=== PATIENT | female | born 1940 | race Caucasian/White ===

== ENCOUNTER 2025-04-01 14:46 | Outpatient (AMB) | payer MEDICARE, MEDICAID, SELFPAY ==
--- NOTE | 2025-04-01 14:49 | MHC.OFFVIS ---
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 She reports that the pain has been persistent since the age of 37, following a fall on concrete. The pain is described as constant, with a severity ranging from 8 to 10 out of 10, particularly exacerbated by daily activities. The patient also has a history of fibromyalgia, with pain reported in multiple areas including the neck, arms, hands, shoulders, back, legs, knees, and toes. The pain is characterized as stabbing, sharp, tingling, aching, heavy, tiring, radiating, piercing, and cold sensation. Patient has recently completed cervical and lumbar spine MRI as noted below, significant for multilevel degenerative changes with moderate to severe central and neuroforaminal stenosis in cervical and lumbar spine. She is considering neuromodulation with spinal cord stimulation trial but is planning to follow up with Dr. Amos initially. She has not decided to undergo SCS trial through our office or with Dr. Amos but is consenting to proceed with Behavioral evaluation through [facility] in the meantime. She has undergone various interventions including physical therapy, chiropractic manipulation, acupuncture, and the use of a TENS unit, with limited relief. The patient is currently using oxycodone 15 mg twice daily, which provides some relief but does not fully alleviate the pain. The patient has a history of cardiac stents and catheterizations, as well as a left knee replacement and back fusion with screws. She also has a history of lung cancer and osteoporosis, which contraindicates the use of steroid injections. The patient used to smoke 1 to 1.5 packs per day but has stopped, and she drinks one cup of regular coffee daily while denying alcohol use. - Onset: Pain has been present since age 37 following a fall on concrete. - Quality: Described as stabbing, sharp, tingling, aching, heavy, tiring, radiating, piercing, and cold sensation. - Severity: Ranges from 8 to 10 out of 10, with morning pain being 5 to 6 out of 10. - Location: Pain is in the neck, arms, hands, shoulders, back, legs, knees, and toes. - Radiation: Pain radiates to both legs. - Exacerbating factors: Cold weather, movements, walking, bending, and lifting. - Relieving factors: Use of oxycodone and topical medications. - Interference: Difficulty with personal care, such as dressing, bathing, cooking, and ambulation. - Affect: Pain significantly impacts mood and psychological wellbeing, causing frustration and distress. - Analgesia: Currently using oxycodone 15 mg twice daily, with pain levels ranging from 8 to 10 out of 10. - Adverse Effects: No specific adverse effects from medications were discussed. - Activities of Daily Living: Pain interferes with personal care, ambulation, and daily activities, requiring the use of a walker. - Aberrant Drug Related Behaviors: No signs of medication abuse or misuse were discussed. - Functional Goals: The patient desires relief from pain to improve daily functioning and quality of life. [facility], [facility] Medical History (Updated 04/01/25 @ 22:26 by HAVEN Stringer) Opioid contract exists Lumbago Hypercholesterolemia Tubular adenoma of colon Diverticulitis of colon with hemorrhage Osteoarthritis of both knees Prediabetes SORAIDA (obstructive sleep apnea) IBS (irritable bowel syndrome) Peripheral vascular occlusive disease Coronary artery disease Spinal stenosis Adenocarcinoma of left lung Pulmonary embolism Cancer of lung Gout Urge incontinence Renal cyst Aortic stenosis Pancreatic lesion Inguinal hernia Chronic back pain Hypertension Fibromyalgia Social History (Updated 04/01/25 @ 15:17 by Susanna Cox) Alcohol intake: never Patient Tobacco Use Status: Former Tobacco user Tobacco use type: Cigarette Review of Systems Const Details: - Musculoskeletal: Reports chronic pain in multiple areas including neck, arms, hands, shoulders, back, legs, knees, and toes. - Neurological: Reports tingling and weakness in the right hand, and pain radiating to both legs. - Cardiovascular: Denies chest pain, but has a history of cardiac stents. - Respiratory: Denies current respiratory symptoms, but has a history of lung cancer. - Gastrointestinal: Denies significant changes in appetite, but reports a decrease over the past couple of years. All systems reviewed & are unremarkable except as noted in HPI and below Physical Exam Vital Signs: Last Vital Signs Pulse 84 04/01/25 14:53 BP 167/71 H 04/01/25 14:56 Pulse Ox 97 04/01/25 14:53 Oxygen Delivery Method Room Air 04/01/25 14:53 BMI result Body Mass Index 43.4 General: Appears afebrile. Alert and oriented. Mood and affect appropriate. Follows and participates in conversation appropriately. Respiratory effort is unlabored. No cough. Able to transition from sit to stand unassisted. Uses walker with seat. Ambulates with antalgic, slow gait. General: Yes no CVA tenderness Back/Spine/Pelvis Back: no CVA tenderness Cervical Spine: No collar present, loss of normal cervical lordosis, cervical muscular tenderness, pain with cervical ROM, cervical spasm and No Cervical spine tenderness Thoracic/Lumbar Spine: thoracic and lumbar spine normal to inspection, Thoracic/lumbar spine scar(s), Lasegue's sign positive bilateral and diffuse, pain with thoraco-lumbar ROM (Positive facet loading bilaterally), paraspinal muscle tenderness on the right greater than left, thoraco-lumbar ROM limited, Thoracic/lumbar scoliosis, No thoracic spinal tenderness and lumbar spinal tenderness at L3, at L4 and at L5 Pelvis: buttock tenderness on the right Sacroiliac joints: on the right tender to palpation and on the left nontender Extrem General: Yes capillary refill normal, Yes no clubbing, cyanosis or edema and Yes no calf tenderness Results Reviewed Results Reviewed: Assessment & Plan Assessment & Plan (1) Chronic back pain: Code(s): M54.9 - Dorsalgia, unspecified; G89.29 - Other chronic pain Category: Medical (2) Osteoarthritis of both knees: Code(s): M17.0 - Bilateral primary osteoarthritis of knee Category: Medical (3) Fibromyalgia: Code(s): M79.7 - Fibromyalgia Category: Medical (4) Lumbar degenerative disc disease: Code(s): M51.36 - Other intervertebral disc degeneration, lumbar region Category: Medical (5) Lumbosacral spondylosis: Code(s): M47.817 - Spondylosis without myelopathy or radiculopathy, lumbosacral region Category: Medical (6) Spinal stenosis: Code(s): M48.00 - Spinal stenosis, site unspecified Category: Medical Plan The plan for managing the patient's chronic low back pain includes considering spinal cord stimulation as a potential treatment option. Placed referral for psychology clearance in anticipation of SCS trial. Extensive discussion regarding the risks and benefits of SCS trial and implant procedures and all questions were answered to patient satisfaction. Information pamphlets were provided to patient and family. The patient is advised to continue using oxycodone as prescribed by her PCP. Narcan script sent to patient. Due to osteoporosis, steroid injections are contraindicated, and the patient should continue with calcium and vitamin D supplementation as recommended by her primary care provider. The patient is encouraged to reduce soda intake to aid in weight management, which may help alleviate some of the physical strain contributing to her pain. All questions and concerns have been answered and patient agreed with the treatment plan. Follow up as needed. Patient was informed and verbally consented to the use of an ambient scribe for clinic note documentation during this visit. 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
[2025-04-01 14:53] VITALS: BP 201/84; PULSE 84; O2SAT 97; BMI 43.4
[2025-04-01 14:56] VITALS: BP 167/71; BMI 43.4
--- OUTSIDE RECORDS SUMMARY | 2025-04-01 16:33 | XMS_ITS | Clinical Summary ---
Author Organization [facility] [address] [facility] Address [address] [place] [address] Phone Care Team Providers Care Milk Runner Name Role Phone Bob Zelaya MD Primary Care Provider [phone] Allergies Active Allergy Reactions Criticality Noted Date Comments Codeine Nausea And Vomiting,Rash Low 02/20/2006 Sulfamethoxazole-Trimet hoprim Rash Medium 12/04/2009 Other Reaction(s): Flushing, feeling of warmth Trimethoprim 10/13/2020 Medications fluticasone propionate (FLONASE) 50 mcg/actuation nasal spray 2 Sprays by Nasal route daily. 4 Active cholecalcifero l (VITAMIN D-3) 50 mcg (2,000 unit) tabletIndicati ons:Cervical spinal stenosis Take 1 tablet (2,000 Units total) by mouth 1 (one) time each day. 90 each 1 4 Active apixaban (ELIQUIS) 5 mg tablet Take 1 tablet (5 mg total) by mouth 2 (two) times a day. 180 tablet 3 4 Active metoprolol succinate (TOPROL-XL) 25 mg 24 hr tablet Take 0.5 tablets (12.5 mg total) by mouth 1 (one) time each day. Do not crush or chew. 45 tablet 2 5 Active acetaminophen (TYLENOL) 500 mg tablet Take 1 tablet (500 mg total) by mouth every 8 (eight) hours if needed for mild pain. Active cetirizine (ZyrTEC) 10 mg tablet Take 1 tablet (10 mg total) by mouth 1 (one) time each day. 90 each 1 5 Active oxyCODONE (ROXICODONE) 10 mg immediate release tablet Take 1 tablet (10 mg total) by mouth 2 (two) times a day. Max Daily Amount: 20 mg 56 tablet 5 Active Additional Information Patient not taking.Reported on 02/26/2025 oxyCODONE (ROXICODONE) 10 mg immediate release tablet Take 1 tablet (10 mg total) by mouth 2 (two) times a day. 56 tablet 5 Active Additional Information Patient not taking.Reported on 02/26/2025 furosemide (LASIX) 40 mg tablet Take 1 tablet (40 mg total) by mouth 2 (two) times a week. 24 tablet 1 5 Active Crestor 40 mg tablet Take 1 tablet (40 mg total) by mouth 1 (one) time each day. at bedtime. 90 tablet 1 5 Active oxyCODONE (ROXICODONE) 15 mg immediate release tablet Take 1 tablet (15 mg total) by mouth 2 (two) times a day. Max Daily Amount: 30 mg 56 tablet 5 Active valsartan (DIOVAN) 80 mg tablet Take 1 tablet (80 mg total) by mouth 1 (one) time each day. [place] name only 180 tablet 1 5 03/25/20 26 Active oxyCODONE (ROXICODONE) 15 mg immediate release tablet Take 1 tablet (15 mg total) by mouth 2 (two) times a day. Max Daily Amount: 30 mg 56 tablet 5 03/11/20 25 Discontin ued(Reord er) valsartan (DIOVAN) 80 mg tablet Take 1 tablet (80 mg total) by mouth 2 (two) times a day. 180 each 1 5 03/25/20 25 Discontin ued(Formu ezus change) valsartan (DIOVAN) 80 mg tablet Take 1 tablet (80 mg total) by mouth 2 (two) times a day. [place] name only 180 tablet 1 5 03/25/20 25 Discontin ued(Reord er) Active Problems Problem Noted Date Diagnosed Date Dyspnea on exertion 03/25/2025 Assessment & Plan (03/25/2025 12:04 PM EST): Is multifactorial. Will check BNP level. Will continue furosemide at current regiment. Will update ischemia workup. Inguinal hernia 04/04/2024 Pancreatic lesion 04/04/2024 Morbid obesity with BMI of 4 5.0-49.9, adult ([facility] V24, [facility] V28) 04/04/2024 Aortic stenosis 02/28/2022 Overview (04/04/2024): Last Assessment & Plan: Will repeat echo to reassess aortic stenosis. Assessment & Plan (03/25/2025 12:06 PM EST): Will continue to monitor. Last echocardiogram was in 04/2024. Assessment & Plan (07/25/2024 2:58 PM EST): Aortic valve stenosis remains in the mild range. Will continue to monitor. Ascending aortic aneurysm ([facility] V24) 02/29/20 22 Overview (04/04/2024): Last Assessment & Plan: I did review with her the ascending aorta was 4.0 cm from April 2020. I am going to repeat her echocardiogram. Microscopic hematuria 03/01/2021 Overview (04/04/2024): Follows with [facility] urology on 3 mth basis. Last appt 02/24/2021. Renal cyst 03/01/2021 Overview (04/04/2024): Follows with [facility] urology on 3 mth basis. Last appt 02/24/2021. Urge incontinence 03/01/2021 Overview (04/04/2024): Follows with [facility] urology on 3 mth basis. Last appt 02/24/2021. Pulmonary embolism ([facility] V24, [facility] V28) Overview (04/04/2024): 01/02/2020: [facility] admission for bilateral subsegmental PE and started on Eliquis 5mg twice per day. Gout 11/26/2020 Overview (04/04/2024): Per Rheum [facility] 12/09: Continue Allopurinol 300 mg qd. Follow-up prn basis. Cancer of lung ([facility] V24, [facility] V28) 2017 Overview (04/04/2024): Nodule on left upper lung positive for Ca. 5/18 - radiation rx given. Adenocarcinoma of left lung ([facility] V24, CMS/ C V28) 09/08/2017 Class 3 severe obesity due t o excess calories with serious comorbidity in adult ([facility] V28) 09/08/2017 Elevated lipids 09/08/2017 Spinal stenosis of lumbar re gion without neurogenic claudication 09/08/2017 Assessment & Plan (02/26/2025 9:45 AM EDT): Orders: Ambulatory referral to Pain Medicine; Future Coronary artery disease involving agdaagux coronar y artery 09/08/2017 Peripheral vascular occlusive disease ([facility] V 24) 09/08/2017 Prediabetes 05/11/2017 SORAIDA (obstructive sleep apnea) 08/20/2015 Osteoarthritis of both knees 01/09/2013 Overview (04/04/2024): Left TKR -2018 CAD (coronary artery disease) 04/13/2011 Overview (04/04/2024): Last Assessment & Plan: No angina symptoms. SOB likely multifactorial. Continue current regimen. Assessment & Plan (03/25/2025 12:07 PM EST): Will schedule nuclear perfusion stress test. Otherwise continue statin and current regimen. Orders: ECG 12 lead Exercise nuclear stress test with myocardial perfusion; Future Assessment & Plan (07/25/2024 2:58 PM EST): She had inferior Q waves for many years and echocardiogram showed no wall motion abnormality. She has no chest pain. Will continue medical treatment. Orders: ECG 12 lead IBS (irritable bowel syndrome) 12/21/2009 Diverticulitis of colon without hemorrhage 08/10 Overview (04/04/2024): Incidental finding at colonoscopy 07/29; history of diverticulitis Tubular adenoma of colon 07/03/2009 Overview (04/04/2024): Negative colonoscopy 08/10/2009. Diminutive tubular adenoma x2 at colonoscopy 11/10/2014, consider colonoscopy 2021. Leukocytosis 02/21/2008 Osteopenia 03/01/2006 Hypertension 02/20/2006 Overview (04/04/2024): Last Assessment & Plan: 122/82 in office today, well-controlled. Continue current regimen. Assessment & Plan (02/26/2025 9:45 AM EDT): Pure hypercholesterolemia 02/20/2006 Overview (04/04/2024): Last Assessment & Plan: Last lipid panel from February 2022. Total cholesterol 200, triglycerides 130, HDL 73, LDL 101. She is already on high intensity statin therapy. Suggest repeat fasting lipid panel when she sees her PCP. Goal LDL should be less than 70 given coronary disease. Fibromyalgia 02/20/2006 Overview (04/04/2024): Evaluated by rheum 11/23/20:Advised to f/u prn basis. Esophageal reflux 02/20/2006 Overview (04/04/2024): Had EGD and pH probe. Lumbago 02/20/2006 Coronary atherosclerosis of agdaagux coronary vess el 02/20/2006 Overview (04/04/2024): Stented vessels to legs - 2001 Encounters Date Type Department Care Team Description 03/25/2025 11:30 AM EST Lab Draw Station - [address] [place] [address] LVH (left ventricular hypertrophy) (Primary Dx); SOB (shortness of breath); Heart disease, unspecified 03/25/2025 10:50 AM EST Office Visit [facility] [address] [facility] [address] [place] [address] Viridiana Medley MD Coronary artery disease involving agdaagux coronary artery of agdaagux heart with other form of angina pectoris ([facility] V24) (Primary Dx); LVH (left ventricular hypertrophy); SOB (shortness of breath); Heart disease, unspecified; Dyspnea on exertion; Nonrheumatic aortic valve stenosis 03/25/2025 Telephone [facility] [address] [facility] [address] [place] [address] Alyssia Cabezas [place] 03/17/2025 Telephone Adult Medicine [address] [phone] Bob Zelaya MD 03/11/2025 Telephone Adult Medicine [address] [phone] Bob Zelaya MD 02/26/2025 8:00 AM EDT Office Visit Adult [address] [phone] Bob Zelaya MD Encounter for subsequent annual wellness visit (AWV) in Medicare patient (Primary Dx); Primary hypertension; Spinal stenosis of lumbar region without neurogenic claudication; Other chronic pain; Chronic pain of both knees; Lightheadedness 02/19/2025 Telephone Adult Medicine [address] [phone] Bob Zelaya MD 02/17/2025 Telephone Adult Medicine [address] [phone] Bob Zelaya MD 02/17/2025 Results Follow-Up Adult Medicine [address] [phone] Bob Zelaya MD 02/14/2025 1:15 PM EDT Office Visit [address] [phone] Bob Zelaya MD Other chronic pain (Primary Dx); Stage 3b chronic kidney disease (CMS/HCC V24, CMS/HCC V28); Primary hypertension; Fatty liver; Skin lesion of face; Cervical stenosis of spine; Spinal stenosis of lumbar region without neurogenic claudication; Lumbar disc disease; Renal cyst; Primary osteoarthritis of both knees 12/30/2024 10:36 AM EDT - 12/30/2024 11:59 PM EDT Hospital Encounter [facility] MRI [address] [place] [address] Radiculopathy, lumbar region Discharge Disposition: Home or Self Care 12/30/2024 10:29 AM EDT - 12/30/2024 11:59 PM EDT Hospital Encounter [facility] MRI [address] [place] [address] Radiculopathy, cervical region Discharge Disposition: Home or Self Care from Last 3 Months Immunizations Immunization Administration Dates Next Due Influenza trivalent, 0.5mL, preservative free (Fluarix; FluLaval; Fluzone) ages 6mo and older (Afluria) 3 years and older 03/18/2014,03/19/2007 Td Tetanus diptheria (Tdvax) 7yo and older 01/27 Surgical History Surgery Date Site/Laterality Comments OTHER SURGICAL HISTORY 2001 PROCEDURE: DE CORONARY ENDARTERCOMY OPEN ANY METHOD; COMMENT: stent x 3 OTHER SURGICAL HISTORY 01/09/2014 PROCEDURE: LUMBAR SPINE FUSION, LAT TRANSVERSE; COMMENT: [facility] - Dr. Amos OOPHORECTOMY Right PROCEDURE: DE OOPHORECTOMY PARTIAL/TOTAL UNI/BI COLONOSCOPY 11/10/2014 PROCEDURE: HISTORICAL COLONOSCOPY; COMMENT: [facility]; mario polyps x 2: tubular adenomas COLONOSCOPY 08/10/2009 PROCEDURE: HISTORICAL COLONOSCOPY; COMMENT: diverticulosis; no polyps UPPER GASTROINTESTINAL ENDOSCOPY 03/07/2004 PROCEDURE: DE UPPER GI ENDOSCOPY PERFORMED; COMMENT: Normal on PPI rx; Dr. Linn. COLONOSCOPY 02/26/2004 PROCEDURE: HISTORICAL COLONOSCOPY; COMMENT: diminutive tubular adenoma x 2; Temitope OTHER SURGICAL HISTORY 2017 PROCEDURE: RADIATION TREATMENT DELIVERY; COMMENT: Left upper lobe lung cancer. CATARACT EXTRACTION ? 1999 Bilateral PROCEDURE: HISTORICAL CATARACT REMOVAL COLONOSCOPY 10/27/2021 PROCEDURE: HISTORICAL COLONOSCOPY; COMMENT: incomplete to rectosigmoid due to adhesions Medical History Medical History Date Comments Pure hypercholesterolemia 02/20/2006 DX:Pur e hypercholesterolemia Lumbago 02/20/2006 DX:Lumbago Myalgia and myositis, unspecified 02/20/2006 DX:Myalgia and myositis, unspecified Disorder of bone and cartila ge, unspecified 03/01/2006 DX:Disorder of bone and cart ilage, unspecified Coronary atherosclerosis of unspecified type of vessel, agdaagux or graft 02/20/2006 DX:Coronary atherosclerosis of unspecified type of vessel, agdaagux or graft; COMMENT: Stented vessels to legs - 2001 Esophageal reflux 02/20/2006 DX:Esophageal reflux Essential hypertension, benign 02/20/2006 D X:Essential hypertension, benign Diverticulosis of colon (wit hout mention of hemorrhage) 08/10/2009 DX:Diverticulosis of colon ( without mention of hemorrhage) IBS (irritable bowel syndrome) 12/21/2009 D X:IBS (irritable bowel syndrome) Morbid obesity ([facility] V24, [facility] V28) 04/09/2012 DX:Morbid obesity (HCC) Diverticulitis of colon 04/13/2011 DX:Diver ticulitis of colon Tubular adenoma of colon 07/03/2009 DX:Tubu lar adenoma of colon; COMMENT: Negative colonoscopy 08/10/2009. Diminutive tubular adenoma x2 at colonoscopy 11/10/2014, consider colonoscopy 2019. History of basal cell carcin alexsandra of skin 11/10/2010 DX:History of basal cell car cinoma of skin SORAIDA (obstructive sleep apnea) 08/20/2015 DX :SORAIDA (obstructive sleep apnea) Cancer of lung ([facility] V24, [facility] V28) 10/24/2017 DX:Cancer of lung ([facility]) Actinic keratosis, hx of DX:Acti sharda keratosis, hx of Osteoarthritis of both knees 01/09/2013 DX: Osteoarthritis of both knees; COMMENT: Dr. Ortiz (rheumatology) Pulmonary embolism ([facility] V24, [facility] V28) 12/05/2020 DX:Pulmonary embolism (HCC); COMMENT: 01/02/2020: [facility] admission for bilateral subsegmental PE and started on Eliquis 5mg twice per day. Diverticulosis DX:Diverticulosi s Abdominal pain DX:Abdominal shilpa n Passage of loose stools DX:Passa ge of loose stools Rectus diastasis of lower abdomen DX:Rectus diastasis of lower abdomen Diverticulitis DX:Diverticuliti s Inguinal hernia DX:Inguinal jose miguel ia Pancreatic lesion DX:Pancreatic lesion; COMMENT: Noted on CT Kidney stones DX:Kidney stones Family History Medical History Relation Name Comments Cataracts Brother Other cancer Brother ? myeloma Arthritis Father Heart attack Father Cataracts Mother Cataracts Sister Blindness Neg Hx Breast cancer Neg Hx Colon cancer Neg Hx Glaucoma Neg Hx Macular degeneration Neg Hx Ovarian cancer Neg Hx Strabismus Neg Hx Relation Name Status Comments Brother Father (Age 72) Mother (Age 83) Sister Social History Tobacco Use Types Packs/Day Years Used Date Smoking Tobacco: Former Cigarettes 0.8 20 0 05/22/1981 - 05/22/2001 Smokeless Tobacco: Never Tobacco Cessation:Counseling Given: Not Answered Alcohol Use Standard Drinks/Week Comments No 0 (1 standard drink = 0.6 oz pur e alcohol) Housing Instability Answer Date Recorde d Are you worried that in the next 2 months you may not have stable housing? No 02/26/2025 Food Access & Nutrition Answer Date Rec orded Do you have access to a vari ety of food including fruits and vegetables? Yes 02/26/2025 Access to Healthcare Answer Date Record ed Within the last 3 months, ho w many times did you visit the emergency department for your medical care? 0 02/26/2025 Health Literacy Answer Date Recorded How often do you need to hav e someone help you when you read instructions, pamphlets, or other written material from your doctor or pharmacy? Sometimes 02/26/2025 Caregiver: How often do you need to have someone help you when you read instructions, pamphlets, or other written material from your doctor or pharmacy? Not on file 02/26/2025 Financial Risk Answer Date Recorded How hard is it for you to pa y for the very basics like food, housing, medical care, and air conditioning / heating? Somewhat hard 02/26/2025 Transportation Answer Date Recorded Has the lack of transportati on kept you from meetings, work, or from getting things needed for daily living? No Has the lack of transportati on kept you from medical appointments or from getting medications? No 02/26/2025 Social Isolation Answer Date Recorded How often do you feel lonely or isolated from those around you? Sometimes 02/26/2025 Food Risk Answer Date Recorded Within the past 12 months we worried whether our food would run out before we got money to buy more. Sometimes true 025 Within the past 12 months th e food we bought just didn't last and we didn't have money to get more. Never true 02/26/2025 Education Answer Date Recorded Do you think completing more education or training, like finishing a GED, going to college, or learning a trade, would be helpful for you? N/A 02/26/2025 Employment and Income Answer Date Recor ded During the last four weeks, have you been actively looking for work? No 02/26/2025 Living Situation Answer Date Recorded What is your living situation? Unrecognized valu e 02/26/2025 Comments No Sex and Gender Information Value Date Recorded Sex Assigned at Not on file Legal Sex Female 4:17 AM EST Gender Identity Not on file Sexual Orientation Not on file Obstetrics History Last Filed Vital Signs Vital Sign Reading Time Taken Comments Blood Pressure 116/62 03/25/2025 10:36 AM EST Pulse 62 03/25/2025 10:36 AM EST Temperature 36.5 C (97.7 F) 02/26/2025 8:06 AM EDT Respiratory Rate 16 02/26/2025 8:06 AM EDT Oxygen Saturation 96% 03/25/2025 10:36 AM EST Inhaled Oxygen Concentration - - Weight 95.7 kg (211 lb) 03/25/2025 10:36 AM EST Height 149.9 cm (4' 11.02 ) 03/25/2025 10:36 AM EST Body Mass Index 42.59 03/25/2025 10:36 AM EST Plan of Treatment Upcoming Encounters Date Type Department Care Team (Late st Contact Info) Description 04/04/2025 1:00 PM EST Ancillary Procedure [facility] [address] [place] [address] 05/19/2025 1:15 PM EST Office Visit Adult Medicine [address] [phone] Bob Zelaya MD [address] [place] [address] Health Maintenance Due Date Last Done Comments COVID-19 Vaccine (#1) 1945 Pneumococcal Vaccine: 50+ Years (1 of 2 - PCV) 1961 Zoster Vaccines (1 of 2) 1961 RSV Immunization Adult Patients (1 - 1-dose 75+ series) 2017 Depression Screening 05/22/2024 02/05/2024 Influenza Vaccine (#1) 2025 4, 03/19/2007 Hypertension/CHF/CAD Annual BMP Blood Test 02/14/2026 02/14/2025, 08/09/2024, 08/02/2023 Falls Risk Assessment 02/26/2026 02/26/2025 Medicare Annual Wellness Visit 02/26/2026 02/26/2025 Social Influencers of Health Screening 02/26/2026 02/26/2025 Colorectal Cancer Screening: Colonoscopy 10/27/2028 10/27/2021 Cholesterol Screening (Lipid Panel) 08/09/2029 08/09/2024, 08/02/2023 DTaP,Tdap,and Td Vaccines (2 - Td or Tdap) 01/27/2031 01/27/2021 Osteoporosis Screening (Bone Density Screening) 04/05/2032 04/05/2022 HIB Vaccines Aged Out No longer eligi ble based on patient's age to complete this topic HPV Vaccines Aged Out No longer eligi ble based on patient's age to complete this topic Hepatitis A Vaccines Aged Out No long er eligible based on patient's age to complete this topic Hepatitis B Vaccines Aged Out No long er eligible based on patient's age to complete this topic IPV Vaccines Aged Out No longer eligi ble based on patient's age to complete this topic MMR Vaccines Aged Out No longer eligi ble based on patient's age to complete this topic Meningococcal ACWY Vaccine Aged Out N o longer eligible based on patient's age to complete this topic Meningococcal B Vaccine Aged Out No l onger eligible based on patient's age to complete this topic RSV Immunization Patients Under 20 months Aged Out No longer eligible b ased on patient's age to complete this topic Varicella Vaccines Aged Out No longer eligible based on patient's age to complete this topic Procedures Procedure Name Priority Date/Time Associated Diagnosis Comments DE IMMUNOFIXATION ELECTROPHORESIS SERUM Routine 03/25/2025 11:30 AM EST LVH (left ventricular hypertrophy) IMMUNOGLOBULINS IGG, IGA, IGM Routine 03/25/2025 11:30 AM EST LVH (left ventricular hypertrophy) SOB (shortness of breath) IMMUNOFIXATION ELECTROPHORESIS Routine 03/25/2025 11:30 AM EST LVH (left ventricular hypertrophy) B-TYPE NATRIURETIC PEPTIDE Routine 03/25/2025 11:30 AM EST SOB (shortness of breath) Heart disease, unspecified KAPPA-LAMBDA QUANTITATIVE FREE LIGHT CHAINS Routine 03/25/2025 11:30 AM EST LVH (left ventricular hypertrophy) ECG 12-LEAD Routine 03/25/2025 10:47 AM EST Coronary artery disease involving agdaagux coronary artery of agdaagux heart with other form of angina pectoris (CMS/HCC V24) MR LUMBAR SPINE WO CONTRAST Routine 02/21/2025 8:49 AM EDT COMPREHENSIVE METABOLIC PANEL Routine 02/14/2025 2:15 PM EDT Fatty liver MR LUMBAR SPINE WO CONTRAST Routine 12/30/2024 1:29 PM EDT Radiculopathy, lumbar region MR CERVICAL SPINE WO CONTRAST Routine 12/30/2024 1:28 PM EDT Radiculopathy, cervical region LIPID PANEL WITH REFLEX TO DIRECT LDL Routine 08/09/2024 10:56 AM EDT Pure hypercholesterolemia HM DEPRESSION SCREENING Routine 02/05/2024 DXA BONE DENSITY STUDY 1+ SITS AXIAL SKEL Routine 04/05/2022 2:23 PM EST Asymptomatic menopausal state HM COLONOSCOPY Routine 10/27/2021 from Last 3 Months or Most Recently Relevant to Health Maintenance Results * Pathologist Review Immunofixation (03/25/2025 11:30 AM EST) Pathologist Interpretation Darlene Lamb MD 03/26/2025 2:27 PM EST [facility] Blood Venous blood specimen / Unknown Venipuncture / Unknown 03/25/2025 11:30 AM EST 03/25/2025 12:41 PM EST Viridiana Medley MD LAB BLOOD ORDERABLES Final Resul t [facility]) [facility] [address] [place] [address], [place] [phone] * (ABNORMAL) [place]-lambda free light chains, quantitative (03/25/2025 11:30 AM EST) Pathologist [facility] [place] Free Light Chain 4.30(H) 0.33 - 1.94 mg/dL 03/27/2025 11:25 AM EST [facility] Lambda Free Light Chain 3.34(H) 0.57 - 2.63 mg/dL 03/27/2025 11:25 AM EST [facility] [place]/Lambda FLC Ratio 1.29 0.26 - 1.65 03/27/2025 11:25 AM EST [facility] Comment: Test performed at [facility], [address], [place] [address] Natalia King MD, PhD - Finish Grinder Blood Venous blood specimen / Unknown Venipuncture / Unknown 03/25/2025 11:30 AM EST 03/25/2025 12:41 PM EST Viridiana Medley MD LAB BLOOD ORDERABLES Final Resul t [facility] [address] [place], [place] [id number] * Immunofixation electrophoresis serum (03/25/2025 11:30 AM EST) Immunofixation Result, Serum No monoclonal immunoglobulins detected. LAB CHEMISTRY METHOD 03/26/2025 2:27 PM EST [facility] Blood Venous blood specimen / Unknown Venipuncture / Unknown 03/25/2025 11:30 AM EST 03/25/2025 12:41 PM EST us Viridiana Medley MD LAB BLOOD ORDERABLES Final Resul t Performing Organization Address City/[facility]/ZIP Co de Phone Number [facility] [address] [place] [address], [place] [phone] * (ABNORMAL) Immunoglobulins IgG, IgA, IgM (03/25/2025 11:30 AM EST) Total IgG 1,220 549 - 1,584 mg/dL LAB CHEMISTRY METHOD 03/26/2025 11:29 AM EST [facility] IgA 464(H) 61 - 348 mg/dL LAB CHEMISTRY METHOD 03/26/2025 11:29 AM EST [facility] IgM 66 23 - 259 mg/dL LAB CHEMISTRY METHOD 03/26/2025 11:29 AM EST [facility] Blood Venous blood specimen / Unknown Venipuncture / Unknown 03/25/2025 11:30 AM EST 03/25/2025 12:41 PM EST us Viridiana Medley MD LAB BLOOD ORDERABLES Final Resul t Performing Organization Address City/[facility]/ZIP Co de Phone Number [facility] [address] [place] [address], [place] [phone] * B-type natriuretic peptide (03/25/2025 11:30 AM EST) BNP 40 <=100 pcg/mL LAB CHEMISTRY METHOD 03/25/2025 3:05 PM EST [facility] Blood Venous blood specimen / Unknown Venipuncture / Unknown 03/25/2025 11:30 AM EST 03/25/2025 12:41 PM EST Viridiana Medley MD LAB BLOOD ORDERABLES Final Resul t [facility] [address] [place], [place] [id number], [place] [phone] * ECG 12 lead (03/25/2025 10:47 AM EST) Ventricular Rate ECG 62 BPM GEMUSE Atrial Rate 62 BPM GEMUSE P-R Interval 190 ms GEMUSE QRS Duration 90 ms GEMUSE Q-T Interval 416 ms GEMUSE QTc 422 ms GEMUSE P Wave [place] 27 degrees GEMUSE R [place] 19 degrees GEMUSE T [place] 76 degrees GEMUSE ECG Interpretation Normal sinus rhythm Anterolateral infarct (cited on or before 16-SEP-2002) Abnormal ECG When compared with ECG of 25-JUL-2024 13:59, No significant change was found Confirmed by Rasheed MEDLEY YUFENG ([id number]) on 03/25/2025 10:52:56 AM GEMUSE 03/25/2025 10:4 7 AM EST 03/25/2025 10:52 AM EST Viridiana Medley MD ECG ORDERABLES Final Result Performing Organization Address [facility] Co de Phone Number GRACE * MR Lumbar Spine wo Contrast (02/21/2025 8:49 AM EDT) Only the most recent of2 resultswithin the time period is included. Anatomical Region Laterality Modality L-spine, Spine Magnetic Resonan ce Historical Provider IMG MRI PROCEDURES Final Result * (ABNORMAL) Comprehensive metabolic panel (02/14/2025 2:15 PM EDT) Sodium 137 133 - 145 mmol/L LAB CHEMISTRY METHOD 02/14/2025 5:49 PM EDT [facility] Potassium 4.7 3.5 - 5.5 mmol/L LAB CHEMISTRY METHOD 02/14/2025 5:49 PM EDT [facility] Chloride 108 96 - 110 mmol/L LAB CHEMISTRY METHOD 02/14/2025 5:49 PM [facility] CO2 25 21 - 32 mmol/L LAB CHEMISTRY METHOD 02/14/2025 5:49 PM [facility] Anion Gap 4 3 - 11 LAB CHEMISTRY METHOD 02/14/2025 5:49 PM [facility] Glucose 73 70 - 100 mg/dL LAB CHEMISTRY METHOD 02/14/2025 5:49 PM [facility] BUN 27(H) 5 - 25 mg/dL LAB CHEMISTRY METHOD 02/14/2025 5:49 PM [facility] Creatinine 1.42(H) 0.50 - 1.10 mg/dL LAB CHEMISTRY METHOD 02/14/2025 5:49 PM [facility] eGFR 37(L) >=60 mL/min/1. 73m2 LAB CHEMISTRY METHOD 02/14/2025 5:49 PM [facility] Comment:Calculation based on the Chronic Kidney Disease Epidemiology Collaboration (CKD-EPI) equation refit without adjustment for race. BUN/Creatinine Ratio 19.0 LAB CHEMISTRY METHOD 02/14/2025 5:49 PM [facility] Calcium 10.1 8.5 - 10.5 mg/dL LAB CHEMISTRY METHOD 02/14/2025 5:49 PM [facility] AST (SGOT) 22 10 - 42 unit/L LAB CHEMISTRY METHOD 02/14/2025 5:49 PM [facility] ALT (SGPT) 21 10 - 60 unit/L LAB CHEMISTRY METHOD 02/14/2025 5:49 PM [facility] Alkaline Phosphatase 83 42 - 121 unit/L LAB CHEMISTRY METHOD 02/14/2025 5:49 PM [facility] Total Protein 8.1(H) 6.0 - 8.0 g/dL LAB CHEMISTRY METHOD 02/14/2025 5:49 PM EDT [facility] Albumin 3.7 3.2 - 5.0 g/dL LAB CHEMISTRY METHOD 02/14/2025 5:49 PM EDT [facility] Total Bilirubin 0.9 0.0 - 1.4 mg/dL LAB CHEMISTRY METHOD 02/14/2025 5:49 PM EDT [facility] Blood Venous blood specimen / Unknown Venipuncture / Unknown 02/14/2025 2:15 PM EDT 02/14/2025 2:15 PM EDT us Bob Zelaya MD LAB BLOOD ORDERABLES Final Resu lt [facility] [address] [place] [address], [place] [phone] * MR Cervical Spine wo Contrast (12/30/2024 1:28 PM EDT) Anatomical Region Laterality Modality C-spine, Spine Magnetic Resonan ce 12/31/2024 8:46 AM EDT Impressions 12/31/2024 9:01 AM EDT Degenerative changes of the cervical spine, most prominent at C5-6 where there is moderate spinal stenosis and severe bilateral foraminal stenosis. -------- FINAL REPORT -------- Dictated By: Ronald Doherty Dictated Date: 12/31/2024 08:46 ET Assigned Physician: Ronald Doherty Reviewed and Electronically Signed By: Ronald Doherty Signed Date: 12/31/2024 09:01 ET Workstation ID: [id number] Transcribed By: Self Edit Transcribed Date: 12/31/2024 08:46 ET Narrative 12/31/2024 9:01 AM EDT PROCEDURE: MRI of the cervical spine without intravenous contrast. TECHNIQUE: Sagittal and axial multisequence MRI of the cervical spine without intravenous contrast administration. HISTORY: radiculopathy COMPARISON: Radiograph dated 02/05/2024. FINDINGS: Visualized portions of the brain and skull base are normal. Normal alignment. No marrow infiltrative lesion. The paraspinous soft tissues are normal. The cervical cord is normal in signal and caliber. Cervical disc levels: C2-3: Mild left and moderate right facet arthropathy. No spinal or foraminal stenosis. C3-4: Moderate left and mild right facet arthropathy. Mild left foraminal stenosis. No spinal stenosis. C4-5: Moderate left and minimal right facet arthropathy. Small central focal protrusion. No significant spinal stenosis. Moderate left foraminal stenosis. C5-6: Mild disc space height loss. Moderate endplate irregularity. Moderate bilateral uncovertebral spurs with a moderate symmetric disc osteophyte complex. Minimal degenerative irregularity of the facet joints. Mild posterior ligamentous hypertrophy. Moderate spinal stenosis. Severe bilateral foraminal stenosis. C6-7: Mild endplate irregularity. Small bilateral uncovertebral spurs. Moderate left foraminal stenosis. No spinal stenosis. C7-T1: Mild degenerative irregularity of the endplates and facet joints. No spinal or foraminal stenosis. Procedure Note Ronald Doherty MD - 12/31/2024 PROCEDURE: MRI of the cervical spine without intravenous contrast. TECHNIQUE: Sagittal and axial multisequence MRI of the cervical spinewithout intravenous contrast administration. HISTORY: radiculopathy COMPARISON: Radiograph dated 02/05/2024. FINDINGS: Visualized portions of the brain and skull base are normal. Normal alignment. No marrow infiltrative lesion. The paraspinous soft tissues are normal. The cervical cord is normal in signal and caliber. Cervical disc levels: C2-3: Mild left and moderate right facet arthropathy. No spinal orforaminal stenosis. C3-4: Moderate left and mild right facet arthropathy. Mild left foraminalstenosis. No spinal stenosis. C4-5: Moderate left and minimal right facet arthropathy. Small centralfocal protrusion. No significant spinal stenosis. Moderate leftforaminal stenosis. C5-6: Mild disc space height loss. Moderate endplate irregularity.Moderate bilateral uncovertebral spurs with a moderate symmetric discosteophyte complex. Minimal degenerative irregularity of the facetjoints. Mild posterior ligamentous hypertrophy. Moderate spinalstenosis. Severe bilateral foraminal stenosis. C6-7: Mild endplate irregularity. Small bilateral uncovertebral spurs.Moderate left foraminal stenosis. No spinal stenosis. C7-T1: Mild degenerative irregularity of the endplates and facet joints.No spinal or foraminal stenosis. IMPRESSION: Degenerative changes of the cervical spine, most prominent at C5-6 wherethere is moderate spinal stenosis and severe bilateral foraminalstenosis. -------- FINAL REPORT -------- Dictated By: Ronald Doherty Dictated Date: 12/31/2024 08:46 ET Assigned Physician: Ronald Doherty Reviewed and Electronically Signed By: Ronald Doherty Signed Date: 12/31/2024 09:01 ET Workstation ID: [id number] Transcribed By: Self Edit Transcribed Date: 12/31/2024 08:46 ET us Mani LION IMG MRI PROCEDURES Final Resul t * Lipid panel with reflex to direct LDL (08/09/2024 10:56 AM EDT) Cholesterol 149 0 - 200 mg/dL LAB CHEMISTRY METHOD 08/09/2024 2:56 PM EDT [facility] Triglycerides 117 0 - 150 mg/dL LAB CHEMISTRY METHOD 08/09/2024 2:56 PM EDT [facility] HDL 57 >=40 mg/dL LAB CHEMISTRY METHOD 08/09/2024 2:56 PM [facility] LDL Calculated 69 0 - 100 mg/dL LAB CHEMISTRY METHOD 08/09/2024 2:56 PM [facility] VLDL Cholesterol Rubén 23.4 mg/dL LAB CHEMISTRY METHOD 08/09/2024 2:56 PM T [facility] Non HDL Chol. (LDL+VLDL) 92 <145 mg/dL LAB CHEMISTRY METHOD 08/09/2024 2:56 PM [facility] Chol/HDL Ratio 2.6 0.0 - 4.4 LAB CHEMISTRY METHOD 08/09/2024 2:56 PM [facility] Blood Venous blood specimen / Unknown Venipuncture / Unknown 08/09/2024 10:56 AM EDT 08/09/2024 10:56 AM EDT Jerardo LION LAB BLOOD ORDERABLES Fi nal Result [facility] [address] [place] [address], * Depression Screening (02/05/2024) [facility] Depression Screening abstracted Historical Provider MD HEALTH MAINTENANCE Final Result * DXA BONE DENSITY STUDY 1+ SITS AXIAL SKEL (04/05/2022 2:23 PM EST) Anatomical Region Laterality Modality Bone Densitometr y 03/07/2022 11:3 8 AM EDT Narrative 04/05/2022 4:27 PM EST BONE DENSITY (DEXA) Lumbar Spine T-score is 0.9. (SD relative to 20-29 y/o adult) Z-score is 3.4. (SD relative to age matched peers) This is considered normal by WHO criteria. Left Hip T-score is -2.0. Z-score is 0.3. This is considered osteopenia by WHO criteria. Lateral view of the spine demonstrates vertebral heights to be maintained. IMPRESSION: This patient is considered have osteopenia by WHO criteria. This patient has a 13% risk of major osteoporotic fracture and a 3.3% risk of hip fracture over the next 10 years. (World Health Organization Fracture Risk Assessment) The [facility] Department of Internal Medicine recommends using National Osteoporosis Foundation (NOF) guidelines in treatment decisions related to osteoporosis. NOF guidelines suggest considering treatment for postmenopausal women and men aged 50 or older presenting with the following: History of hip or vertebral fracture. T-score = -2.5 (DXA) at the femoral neck, total hip, or spine, after appropriate evaluation to exclude secondary causes. Low bone mass (T-score between -1.0 and -2.5 at the femoral neck or spine) AND a 10-year probability of a hip fracture = 3% OR a 10-year probability of a major osteoporosis-related fracture = 20% based on the [place]-adapted WHO algorithm Please note that all treatment decisions require clinical judgment and consideration of individual patient factors, including patient preferences, co-morbidities, previous drug use, risk factors not captured in the FRAX model (e.g., frailty, falls, vitamin D deficiency, increased bone turnover, interval significant decline in bone density) and possible under- or over-estimation of fracture risk by FRAX. Optional alternative screening schedule based on sobia Tejeda., [facility] June 09, 2011 for patients with osteopenia (based on hip BMD T-score) is as follows: * advanced osteopenia (T scores -2.00 to -2.49), BMD testing every year * moderate osteopenia (T scores -1.50 to -1.99), BMD testing every 5 years mild osteopenia or normal BMD (T scores -1.50 and higher), BMD testing every 15 years Procedure Note Marylou Robison MD - 06/26/2023 BONE DENSITY (DEXA) Lumbar Spine T-score is 0.9. (SD relative to 20-29 y/o adult) Z-score is 3.4. (SD relative to age matched peers) This is considered normal by WHO criteria. Left Hip T-score is -2.0. Z-score is 0.3. This is considered osteopenia by WHO criteria. Lateral view of the spine demonstrates vertebral heights to be maintained. IMPRESSION: This patient is considered have osteopenia by WHO criteria. This patienthas a 13% risk of major osteoporotic fracture and a 3.3% risk of hip fracture over the next10 years. (World Health Organization Fracture Risk Assessment) The [facility] Department of Internal Medicine recommendsusing National Osteoporosis Foundation (NOF) guidelines in treatment decisions related toosteoporosis. NOF guidelines suggest considering treatment for postmenopausal women and menaged 50 or older presenting with the following: History of hip or vertebral fracture. T-score = -2.5 (DXA) at the femoral neck, total hip, or spine, afterappropriate evaluation to exclude secondary causes. Low bone mass (T-score between -1.0 and -2.5 at the femoral neck or spine)AND a 10-year probability of a hip fracture = 3% OR a 10-year probability of a majorosteoporosis-related fracture = 20% based on the [place]-adapted WHO algorithm Please note that all treatment decisions require clinical judgment andconsideration of individual patient factors, including patient preferences, co- morbidities,previous drug use, risk factors not captured in the FRAX model (e.g., frailty, falls, vitaminD deficiency, increased bone turnover, interval significant decline in bone density) andpossible under- or over-estimation of fracture risk by FRAX. Optional alternative screening schedule based on sobia Tejeda., NEJMJanuary 2011 for patients with osteopenia (based on hip BMD T-score) is as follows: * advanced osteopenia (T scores -2.00 to -2.49), BMD testing every year * moderate osteopenia (T scores -1.50 to -1.99), BMD testing every 5years mild osteopenia or normal BMD (T scores -1.50 and higher), BMD testingevery 15 years Emily LION IMG DXA PROCEDURES Final Resu lt * Colonoscopy (10/27/2021) [facility] Colonoscopy abstracted, no interpretation Anatomical Region Laterality Modality Other Historical Provider HEALTH MAINTENANCE Final Result from Last 3 Months or Most Recently Relevant to Health Maintenance Insurance MEDICARE [place]ICAID [place] Advance Directives * Full Code - Confirmed (Latest Code Status on File) Date Activated Date Inactivated Comments 02/26/2025 8:29 AM This code stat us was ascertained in the following way: Code status discussion: discussion with patient To update the patient's code status, place a code status order. Do not modify or discontinue any currently active code status orders. Care Teams Milk Runner Relationship Specialty Start Date End Date Bob Zelaya MD [address] [place] [phone] PCP - General 01/17/06
--- OUTSIDE RECORDS SUMMARY | 2025-04-01 16:33 | XMS_ITS | Data Portability ---
Author Organization [facility] [employer] [facility], [id number] Address [address] [place] [address] Care Team Providers Care Sorority Supervisor Name Role Phone LANDY SAUNDERS Referring Provider Assessment Encounter Date Assessment Date Assessment LastModified by Organization Details LastModified Time 08/12/2024 08/12/2024 84-year-old with neck pain radiating to both arms and low back pain radiating into both legs. I examined and interviewed the patient, reviewed the record, and discussed treatment options with the patient. I would like to obtain her MRIs of her cervical and lumbar spines. In the interim she will try an arthritis cream on her neck and upper shoulders. Additionally we will start her on Lyrica 50 mg at at bedtime. I went over the use and side effects of medications call with any problems or questions. She will continue her oxycodone 10 mg twice daily which she is using appropriately with some relief. I spent 35 minutes reviewing the record and interviewing and examining the patient. Not available 08/12/2024 13:16:02 09/26/2024 09/26/2024 84-year-old with neck, back, and leg pain. The patient will continue on 10 mg of oxycodone twice a day with acetaminophen as needed. She is using medications appropriately and getting good pain relief. She is also using her coping mechanisms to deal with chronic pain. She will call with any problems or questions. [email or web address] Not available 09/26/2024 11:52:50 Plan of Treatment Reminders Order Date Submit Date Provider Last Modified By Organization Details Last Modified Time Details Appointments None record ed. Lab None record ed. Referral None record ed. Procedures None record ed. Surgeries None record ed. Imaging None record ed. Medication Orders None record ed. Patient TargetsNo targets recorded. Patient InstructionsNo instructions recorded. Reason for Referral None Reported. Results Created Date Observation Date Name Description Value Unit Range Abnormal Flag Note LastModifiedBy Organization Detail LastModifiedTime 08/13/1905/02/2021 MRI, abdom en, w/wo contr ast No observ ation record ed. [email or web address] Zurdo Chan MD [address] [place], [address], 08/12/2024 14:55:20 08/13/1905/03/2008 MRI, lumba r spine , w/o contr ast No observ ation record ed. [email or web address] Zurdo Chan MD [address] [place], [address], 08/12/2024 14:56:50 09/26/1902/05/2024 XR, cervi gonzalez spine , 4 or 5 view No observ ation record ed. [email or web address] Not Available 2024 13:35:30 Result Notes None recorded. Procedures Surgical History Date Name Laterality Status Provider Name and Address Organization Details Recorded Time Open coronary endarterectomy completed [facility] [place] 08/09/2024 13:31:32 lumbar spinal fusion completed [facility] [place] 08/09/2024 13:31:57 oophorectomy completed [facility] [place] 08/12/2024 12:36:03 [place] [facility] [place] [facility] [place]09[place]24 13:32:25 Upper gi endoscopy performed completed [facility] [place] 08/09/2024 13:32:36 radiotherapy completed [facility] [place] 08/09/2024 13:33:18 cataract surgery completed [facility] [place] 08/09/2024 13:33:34 arthroplasty of knee completed [facility] [place] 08/12/2024 12:37:10 Imaging Results None recorded. Procedure Notes None recorded. Medical Equipment None Reported. Allergies Allergen ID Allergen Name Allergen Category Reaction Reaction Severity Criticality Documentation Date Start Date Code Code System Note Provider Name and Address Organization Details Recorded Time 74061 sulfameth oxazole / trimethop rim medicatio n Not available Not available Not available 08/09/2024 05472 [facility] 13:22:10 29708 trimethop rim medicatio n Not available Not available Not available 08/09/2024 51831 [facility] 13:22:32 32786 codeine medicatio n Not available Not available Not available 08/09/2024 2670 [facility] 13:22:38 Medications Name Sig Start Date Stop Date Status Note LastModified by Organization Details LastModified Time furosemide 40 mg tablet TAKE 1 TABLET BY MOUTH TWICE WEEKLY active Not Available Not Available No t Available cetirizine 10 mg tablet TAKE ONE TABLET BY MOUTH EVERY DAY active Not Available Not Available No t Available doxycycline monohydrate 100 mg tablet TAKE ONE TABLET BY MOUTH TWICE A DAY FOR 10 DAYS 08/09 completed Not Available Not Available Not Available amoxicillin 500 mg tablet TAKE ONE TABLET BY MOUTH EVERY 8 HOURS FOR 7 DAYS UNTIL GONE 08/09 completed Not Available Not Available Not Available oxycodone 15 mg tablet TAKE ONE TABLET BY MOUTH TWICE A DAY 08/12 completed Not Available Not Available Not Available IBU 600 mg tablet TAKE 1 TABLET BY MOUTH EVERY 6 TO 8 HOURS NEEDED FOR PAIN 09/26 completed Not Available Not Available Not Available neomycin-po lymyxin-dex ameth 3.5 mg/mL-10,00 0 unit/mL-0.1 % eye drops INSTILL ONE DROP INTO BOTH EYES FOUR TIMES A DAY FOR TWO WEEKS THEN STOP 08/09 completed Not Available Not Available Not Available lidocaine HCl 2 % mucosal solution SWISH AND SPIT WITH 5ML 2 TO 4 TIMES PER DAY NEEDED FOR PAIN FOR 5 DAYS 08/09 completed Not Available Not Available Not Available gabapentin 100 mg capsule TAKE ONE CAPSULE BY MOUTH THREE TIMES A DAY 08/12 completed Not Available Not Available Not Available metoprolol succinate ER 25 mg tablet,exte nded release 24 hr TAKE 1/2 TABLET BY MOUTH EVERY DAY DO NOT CRUSH OR CHEW active Not Available Not Available No t Available Vitamin D2 1,250 mcg (50,000 unit) capsule TAKE ONE CAPSULE BY MOUTH ONCE A WEEK active Not Available Not Available No t Available fluticasone propionate 50 mcg/actuati on nasal spray,suspe nsion ADMINISTE R 2 SPRAYS NASALLY DAILY active Not Available Not Available No t Available Diovan 160 mg tablet TAKE ONE TABLET BY MOUTH TWICE A DAY active Not Available Not Available No t Available ipratropium bromide 21 mcg (0.03 %) nasal spray INHALE ONE SPRAY IN EACH NOSTRIL TWICE DAILY NEEDED FOR NASAL CONGESTIO N active Not Available Not Available No t Available amoxicillin 500 mg-potassiu m clavulanate 125 mg tablet TAKE ONE TABLET BY MOUTH TWICE A DAY FOR 10 DAYS WITH FOOD 08/09 completed Not Available Not Available Not Available Crestor 40 mg tablet TAKE ONE TABLET BY MOUTH DAILY AT BEDTIME active Not Available Not Available No t Available pregabalin 50 mg capsule TAKE ONE CAPSULE BY MOUTH EVERY DAY AT BEDTIME 09/26 completed Not Available Not Available Not Available chlorhexidi ne gluconate 0.12 % mouthwash SWISH AND SPIT WITH 15 ML TWICE DAILY FOR 5 DAYS 08/09 completed Not Available Not Available Not Available oxycodone 10 mg tablet TAKE ONE TABLET BY MOUTH TWICE A DAY active Not Available Not Available No t Available cholecalcif kirstin (vitamin D3) 50 mcg (2,000 unit) tablet TAKE ONE TABLET BY MOUTH EVERY DAY active Not Available Not Available No t Available Eliquis 5 mg tablet TAKE ONE TABLET BY MOUTH TWICE A DAY active Not Available Not Available No t Available Vitals Date Recorded Body height Body mass index (BMI) Body weight Heart rate Oxygen saturation Oxygen saturation in Arterial blood by Pulse oximetry Body temperature Systolic And Diastolic Provider Name and Address Organization Details Last Updated DateTime 5 149.86 cm 42.4 kg/m2 40975.4 g 68 /min 94 % 94 % 98 [degF] 162/62 mm[Hg] Emperatriz Bertrand [facility] 5 12:31:36 Social History None recorded. Functional Status None recorded. Mental Status None recorded. Family History Nothing Reported. Medical History Condition Response Allergies/Hayfever Y Diabetes Y Anxiety Y Head Trauma/Injury N Hernia Y Acid Reflux (GERD) Y Migraines N Asthma Y Depression Y Substance Use N Back Injury Y Ulcers N Heart Attack (NV) Y Hypertension Y Gynecological HistoryNo gynecological history recorded. Obstetrics History GPAL:G 0 P 0 0 0 0 Past Encounters Encounter ID Performer Location Encounter Start Date Encounter Closed Date Diagnosis/Indication Diagnosis SNOMED-CT Code Diagnosis ICD10 Code Diagnosis IMO Codes Diagnosis Note [id number] Zurdo Chan MD [id number] A_[facility] [place] [address] [facility] [address] [place] [address] 08/12/2024 12:07:30 08/12/2024 13:30:02 Lumbar radiculopathy 935891118 M54.16 [id number] Zurdo Chan MD [id number] A_[facility] [address] [facility] [address] [place] [address] 09/26/2024 07:34:31 09/26/2024 11:56:24 Chronic pain syndrome 114763161 G89.4 37519 Health Concerns Section Related Observation LastModified by Organization Detai ls LastModified Time None Recorded Concern Status LastModified by Organization Details LastModified Time None Recorded Advance Directives Directive None Recorded Payers Insurance Date Sequence Insurance Name Policy Number Policy [place] Covered Member ID [place] Member ID Guarantor Name 09/15/2024 1 MEDICARE B-[place]: [facility] Chanda Poseys [id number] Chanda López 10/09/2024 2 [place] [facility] Chanda Rene [id number] Chanda López Notes Date Note Type Note Provider Name and Address Organization Details Recorded Time 08/12/2024 text/html ROS as noted in the HPI The patient is an 84-year-old female comes in with a chief complaint of neck pain radiating into both shoulders and down the left arm to the elbow and right arm to the mid arm. She also has low back pain rating into both legs. The pain is been present for about 20 years. She currently takes 10 mg of oxycodone twice daily, Tylenol, and uses arthritis cream on her low back. She says the oxycodone helps her be able to do her daily activities. She describes the pain as nagging burning numb cramping and bvwn-[id number]. She does have pain at night. She rates her pain a 10 out of 10 at its worst, and up to 10 usually, 7 out of 10 at its least. The pain has gotten worse over time. MD jason Palacios, [facility] 08/12/2024 13:16:06 09/26/2024 text/html ROS as noted in the HPI This is a medically necessary visit. The patient would typically be seen in the office. The patient verbally agreed to a virtual phone visit in place of a physical appointment. The patient was informed that provider would take precautions to ensure privacy of PHI as much as possible. The patient was informed that they can opt out or refuse services at anytime. A total of 30 minutes was spent reviewing the record and on the phone with the patient. Visit included: - substantial medical advice- revising treatment plan- prescribing/revisin g medications, if prescribed.- providing self-care/patient education information for new and/or chronic health problem. I spoke with the patient on the phone. She started Lyrica and had to stop it after a week because of side effects blurred vision, dizziness, weakness, and balance loss. After stopping medication all those significantly resolved. We had a discussion regarding treatment options. She does use patches and lidocaine locally. At this point she is going to continue with her oxycodone and acetaminophen as needed. MD jason Palacios, [facility] 09/26/2024 11:53:05 OBGyn Episode No OBEpisode recorded.
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
--- OUTSIDE RECORDS SUMMARY | 2025-04-01 16:33 | XMS_ITS | Clinical Summary ---
Author Organization [facility] Address [address] [address] Phone Care Team Providers Care Fur Cutter Name Role Phone Bob Zelaya MD Primary Care Provider [phone] Allergies Active Allergy Reactions Criticality Noted Date Comments Codeine Rash Low 09/05/2017 Morphine Nausea Only Low 09/05/2017 Sulfamethoxazole-Trimethoprim Rash Low 2017 Medications allopurinol (ZYLOPRIM) 300 MG tablet Take 300 mg by mouth 1 (one) time each day Active rosuvastatin (CRESTOR) 40 MG tablet Take 40 mg by mouth 1 (one) time each day Active valsartan (DIOVAN) 160 MG tablet Take 160 mg by mouth 1 (one) time each day Active apixaban (ELIQUIS) 5 MG tablet Take 5 mg by mouth 2 (two) times a day Active loratadine (CLARITIN) 10 MG tablet Take 10 mg by mouth 1 (one) time each day Active fluticasone (FLONASE) 50 MCG/ACT nasal spray Administer 2 sprays into each nostril 1 (one) time each day Active furosemide (LASIX) 40 MG tablet Take 40 mg by mouth 1 (one) time each day Active Active Problems Problem Noted Date Diagnosed Date Stage 3b chronic kidney disease 07/13/2021 Proteinuria 01/11/2021 Acute nontraumatic kidney injury 01/05/2021 Gout 01/05/2021 Hydronephrosis 01/05/2021 Overview (01/05/2021): right sided Hypercholesterolemia 01/05/2021 Essential (primary) hypertension 01/05/2021 Pyelonephritis 01/05/2021 Prediabetes 01/05/2021 Peripheral vascular disease 01/05/2021 Family History Medical History Relation Comments Cancer Brother ? myeloma Arthritis Father Heart attack Father Relation Status Comments Brother Father Mother Social History Tobacco Use Types Packs/Day Years Used Date Smoking Tobacco: Former Cigarettes 0.8 20 0 05/22/1981 - 05/22/2001 Comments Unknown Sex and Gender Information Value Date Recorded Sex Assigned at Not on file Legal Sex Female 5:20 PM EST Gender Identity Not on file Sexual Orientation Not on file Plan of Treatment Upcoming Encounters Date Type Department Care Team (Late st Contact Info) Description 04/29/2025 11:30 AM EST Office Visit [facility] [address] [phone] Isra Milian MD [address] [phone] Health Maintenance Due Date Last Done Comments Pneumococcal Vaccine: 50+ Ye ars (1 of 2 - PCV) 1961 Hepatitis B Vaccine (1 of 3 - Risk 3-dose series) 2002 Influenza Vaccine (#1) 2025 03/18/2014, 2006 Insurance Medicare Medicaid [place] Care Teams Fur Cutter Relationship Specialty Start Date End Date Bob Zelaya MD [address] [place] [phone] PCP - General Internal Medicine 03/17/25
--- OUTSIDE RECORDS SUMMARY | 2025-04-01 16:33 | XMS_ITS | Encounter Summary ---
Author Organization [facility], Address [address] [facility] [address] [place] [address] Phone Care Team Providers Care Family Psychologist Name Role Phone Bob Zelaya MD Primary Care Provider Encounter Details Date Type Department Care Team (Late st Contact Info) Description 07/13/2021 Documentation Only [facility], [address] [place] [address] Erika Saavedra [address] [place] [address] Social History Tobacco Use Types Packs/Day Years Used Date Smoking Tobacco: Former Cigarettes 0.8 20 0 05/22/1981 - 05/22/2001 Comments Unknown Sex and Gender Information Value Date Recorded Sex Assigned at Not on file Legal Sex Female 5:20 PM EST Gender Identity Not on file Sexual Orientation Not on file documented as of this encounter Plan of Treatment Upcoming Encounters Date Type Department Care Team (Late st Contact Info) Description 04/29/2025 11:30 AM EST Office [facility] [address] [address] Isra Milian MD [address] [address] documented as of this encounter Visit Diagnoses Not on filedocumented in this encounter Care Teams Family Psychologist Relationship Specialty Start Date End Date Bob Zelaya MD [address] [place] [address] PCP - General Internal Medicine 03/17/25 documented as of this encounter
== END 2025-04-01 15:38 | disposition home or self-care (01) ==
LOC: HO.PMC 14:46
PROVIDERS: PCP Internal Medicine; Referring Provider Internal Medicine; Visit Provider Nurse Practitioner Family
DX: M54.9 Dorsalgia, unspecified (principal); G89.29 Other chronic pain; M17.0 Bilateral primary osteoarthritis of knee; M79.7 Fibromyalgia; M51.369 Other intervertebral disc degeneration, lumbar region without mention of lumbar back pain or lower extremity pain; M47.817 Spondylosis without myelopathy or radiculopathy, lumbosacral region; M48.00 Spinal stenosis, site unspecified
CPT/HCPCS: 99204

== ENCOUNTER → 2025-04-01 14:46 | Outpatient (BNVA) | payer MEDICARE, MEDICAID, SELFPAY | PROVIDERS: PCP Internal Medicine; Referring Provider Internal Medicine; Visit Provider Nurse Practitioner Family | DX: M79.7 Fibromyalgia (principal); G89.29 Other chronic pain; M51.360 Other intervertebral disc degeneration, lumbar region with discogenic back pain only; M17.0 Bilateral primary osteoarthritis of knee; M47.817 Spondylosis without myelopathy or radiculopathy, lumbosacral region; M48.00 Spinal stenosis, site unspecified | CPT/HCPCS: 99202 ==